=== PATIENT | female | born 1955 | race Two or more races ===

== ENCOUNTER 2018-04-26 20:17 | Emergency (ER) | payer OTHER ==
[~2018-04-26] VITALS: Ht 157.5 cm; Wt 74.4 kg
[2018-04-26] MEDS ORDERED: BENICAR20 MG (20:40)
== END 2018-04-27 00:07 | disposition home or self-care (01) ==
LOC: ER 20:17
DX: K57.30 Diverticulosis of large intestine without perforation or abscess without bleeding (principal); R10.32 Left lower quadrant pain

== ENCOUNTER 2019-06-07 13:03 | Inpatient (IN) | payer OTHER ==
[~2019-06-07] VITALS: Ht 157.5 cm; Wt 74.4 kg
[~2019-06-07 13:03] MED LIST: BENICAR20 MG
[2019-06-17] MEDS ORDERED: CRESTOR10 MG PO (15:26)
[2019-06-17] MEDS ORDERED: ECOTRIN81 MG PO (15:27)
[2019-06-17] MEDS ORDERED: [UNRECOGNIZED DRUG - OTHER] PO (15:28)
[2019-06-22] MEDS ORDERED: BENICAR HCT 401 EAC1 (10:17)
[2019-06-22] MEDS ORDERED: MAXIMUM D3325 MCG PO (10:18)
== END 2019-06-25 09:37 | disposition home or self-care (01) | DRG 330 ==
LOC: SURH 06-22 08:27 → O/R 06-22 08:27 → SURG 06-22 10:30 → SURH 06-22 20:02
PROVIDERS: ADMIT Colon & Rectal Surgery
PROC: 0DJD8ZZ Inspection of Lower Intestinal Tract, Via Natural or Artificial Opening Endoscopic (ICD-10-PCS; 2019-06-22)
PROC: 0DTN4ZZ Resection of Sigmoid Colon, Percutaneous Endoscopic Approach (ICD-10-PCS; principal; 2019-06-22 10:30)
DX: K57.32 Diverticulitis of large intestine without perforation or abscess without bleeding (principal); D62 Acute posthemorrhagic anemia; I10 Essential (primary) hypertension